=== PATIENT | male | born 1985 | race Caucasian/White ===

== ENCOUNTER 2016-05-22 10:25 | Emergency (ER) | payer OTHER ==
[~2016-05-22] VITALS: Ht 180.3 cm; Wt 106.0 kg
[~2016-05-22 10:25] MED LIST: BENTYL20 MG PO; BUDEPRION SR100 MG PO; CLINDAMYCIN HC300 MG PO; FLEXERIL10 MG PO; FLUOXETINE HCL10 MG PO; INDOCIN25 MG PO; LIDOCAINE20 MG/1 M5 PO; PANTOPRAZOLE SO40 MG; PANTOPRAZOLE SO40 MG PO; PROPRANOLOL HCL40 MG PO; PROTONIX40 MG PO; QUETIAPINE FUMA50 MG PO; TRAMADOL HCL50 MG; ZOFRAN ODT4 MG PO
[2016-05-22 11:59] LABS: HEMATOCRIT 49.5 % (38.0-50.0); MCH 28.3 PG (29.0-34.0); MCHC 33.9 G/DL (30.0-36.0); MCV 83.5 FL (86-99); MEAN PLAT.VOLUME 9.9 uM^3 (9.0-12.4); PLATELET COUNT 386 K/uL (156-360); RBC DIS.WIDTH-CV 13.3 % (11.8-14.6); RBC DIS.WIDTH-SD 40.7 % (39-53); RED BLOOD COUNT 5.93 M/uL (4.00-5.50); WHITE BLOOD COUNT 9.6 K/uL (4.1-10.2)
[2016-05-22 12:06] LABS: CHLORIDE 102 mEq/L (99-109); POTASSIUM 4.4 mEq/L (3.7-5.4); SODIUM 140 mEq/L (136-147)
[2016-05-22 12:09] LABS: GLUCOSE 70 mg/dL (70-99)
[2016-05-22 12:10] LABS: ANION GAP 9 MEQ/L (2-14)
[2016-05-22 12:12] LABS: ALKALINE PHOSPHATASE 94 IU/L (3-129); GFR ESTIMATE (CALCULATED) > 59 mL/min/; TOTAL BILIRUBIN 0.6 mg/dL (0.0-1.0)
[2016-05-22 12:13] LABS: UREA NITROGEN (BUN) 10 mg/dL (9-23)
[2016-05-22 12:16] LABS: LIPASE 31 U/L (1.0-51.0)
[2016-05-22 12:49] LABS: ADD MIUA? NO; BILIRUBIN NEGATIVE; BLOOD NEGATIVE; COLOR DK YELLOW ((YELLOW)); GLUCOSE (STRIP) NEGATIVE; KETONES TRACE; LEUKOCYTES NEGATIVE; NITRITE NEGATIVE; PROTEIN (STRIP) TRACE; SPECIFIC GRAVITY 1.033 (1.000-1.030); UCUL ADDED? NO; UROBILINOGEN 0.2 MG/DL (0.2-1.0)
[2016-05-22] MEDS ORDERED: VYVANSE60 MG PO (13:08)
[2016-05-22] MEDS ORDERED: FETZIMA20 MG PO (13:08)
[2016-05-22 15:28] VITALS: BP 129/80
== END 2016-05-22 15:29 | disposition home or self-care (01) ==
LOC: EME 10:25
DX: R10.11 Right upper quadrant pain (principal); Z87.891 Personal history of nicotine dependence
CPT/HCPCS: 74020; 76705; 80053; 81003; 83690; 85027; 99281; 99283

== ENCOUNTER 2016-09-13 17:10 | Emergency (ER) | payer OTHER ==
[~2016-09-13] VITALS: Ht 180.3 cm; Wt 105.1 kg
[~2016-09-13 17:10] MED LIST changes: +FETZIMA20 MG PO; +VYVANSE60 MG PO
[2016-09-13] MEDS ORDERED: WELLBUTRIN100 MG PO (22:12)
[2016-09-13] MEDS ORDERED: FETZIMA40 MG PO (22:12)
[2016-09-13] MEDS ORDERED: VYVANSE60 MG PO (22:12)
[2016-09-13 22:26] VITALS: BP 143/88
== END 2016-09-13 22:28 | disposition home or self-care (01) ==
LOC: EME 17:10
DX: Z76.0 Encounter for issue of repeat prescription (principal); F32.9 Major depressive disorder, single episode, unspecified; F41.9 Anxiety disorder, unspecified; F11.10 Opioid abuse, uncomplicated; F16.10 Hallucinogen abuse, uncomplicated; F12.10 Cannabis abuse, uncomplicated; G25.0 Essential tremor; Z87.891 Personal history of nicotine dependence
CPT/HCPCS: 99281; 99284

== ENCOUNTER 2017-04-22 01:43 | Emergency (ER) | payer OTHER ==
[~2017-04-22] VITALS: Ht 180.3 cm; Wt 100.1 kg
[~2017-04-22 01:43] MED LIST changes: +FETZIMA40 MG PO; +WELLBUTRIN100 MG PO
[2017-04-22 01:45] VITALS: BP 144/103
[2017-04-22] MEDS ORDERED: CLEOCIN300 MG PO (02:27)
[2017-04-22] MEDS ORDERED: ULTRAM50 MG PO (02:27)
== END 2017-04-22 02:57 | disposition home or self-care (01) ==
LOC: EME 01:43
DX: K02.9 Dental caries, unspecified (principal)
CPT/HCPCS: 99281; 99283